=== PATIENT | female | born 1990 | race Hispanic/Latino ===

== ENCOUNTER 2017-05-10 10:20 | Emergency (ER) | payer OTHER ==
[~2017-05-10] VITALS: Ht 167.6 cm; Wt 118.2 kg
[2017-05-10 10:35] VITALS: BP 134/45; PULSE 76; RESP 16; O2SAT 98
--- NOTE | 2017-05-10 10:38 | ED.REPORT ---
HPI-Chest Pain Under 40 Date of Service May 10, 2017 ED Provider: Dr. Michael Zamora MD A 26 year old female with no pertinent medical history presents to the ED with persistent, 9/10, stabbing chest pain that began 24 hours ago. Patient was driving during symptom onset. The pain is exacerbated by movement and deep breath. She describes the sensation in her chest as a throbbing sensation that is associate with dyspnea. Her chest pain does not radiate outside of her chest. Patient has experienced similar pain previously but has never been evaluated because it often resolved without She has taken ibuprofen of Tums with no relief. She denies any palpitations, rash, nausea, vomiting, fever, chills, unilateral leg swelling or tenderness. No recent long flights or periods of inactivity. Nursing Notes Stated Complaint: CHEST PAIN FOR 24 HOURS Chief Complaint: Chest Pain Nursing Notes Reviewed: Yes (Radius, Nurigene not reconciled) Allergies: Coded Allergies: No Known Allergies (Verified , 05/10/17) Scheduled PRN Hydrocodone-Acetaminophen 5-325 mg (Hydrocodone-Acetaminophen 5-325 mg) 1 Each Tablet 1-2 TABLET PO Q4H PRN PRN For Pain General Time Seen by MD: 10:37 Chief Complaint Chest pain Hx Obtained From: Patient Arrived By: Walk-in Sudden in Onset?: No Onset Occurred: 1 day ago Symptom Duration: Since onset Location: : Chest left: Chest right Quality: Painful, Pleuritic, Sharp, Stabbing, Throbbing Radiation: : Does not radiate Migration/Movement: Reports: None Severity: Current: Pain level 9 out of 10 Severity: Maximum: Pain level 9 out of 10 Associated with: Reports: Shortness of breath, Denies: Nausea, Palpitations, Vomiting, Wheezing Pertinent Negative: Pt denies other symptoms Exacerbated by: Deep breath, Movement Pertinent Negative: Relieved by nothing Recent Healthcare: No recent doctor visit, No recent hospitalization Similar Sx Previous: Yes Risk Factors )( CAD Risk Stratification Risk factors reviewed )( PE Risk Stratification Risk factors reviewed Past Medical History Past Medical History Healthy Past Surgical History None reported. 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 Physical Exam Initial Vital Signs Vital Signs (First) Date Time Temp Pulse Resp B/P Pulse Ox O2 Delivery O2 Flow Rate FiO2 05/10/17 10:32 36.8 05/10/17 10:35 76 16 134/45 98 Room Air Initial VS: Reviewed, Vital signs normal Head / Eyes: Atraumatic, Normocephalic, PERRL Neck: Supple, Non-tender, Full range of motion Extremities: Vascular intact, Neuro intact, No swelling, No tenderness Skin: Warm, Dry, No cyanosis Neurologic: Alert, Oriented, Nonfocal Psychiatric: Mood/affect normal, Behavior normal, Normal thought content General/Constitutional: Awake, Alert, No acute distress Respiratory / Chest: Atraumatic, Breath sounds NL, Breath sounds = bilat, No respiratory distress Cardiovascular: Heart rate NL, Regular rhythm, Heart sounds NL, Peripheral circulation NL, Pulses = bilaterally Abdomen: Atraumatic, Soft, Non-tender Tenderness/Guarding/Rebound: Negative: Tender RUQ... Skin: Atraumatic, Color NL, Warm, Dry Color / Condition: Positive: Diaphoresis present (to nose) Interpretation & Diagnostics Lab Results Interpretation Result Diagram: 05/10/17 1045 05/10/17 1045 Test 05/10/17 10:45 White Blood Count 6.7th/mm3 (3.8-10.1) Red Blood Count 4.47mil/mm3 (3.90-5.20) Hemoglobin 13.0g/dL (12.0-15.6) Hematocrit 38.8% (35.0-46.0) Mean Corpuscular Volume 86.8fL (81-100) Mean Corpuscular Hemoglobin 29.1pg (27.0-35.0) Mean Corpuscular Hemoglobin Concent 33.5% (32.0-37.0) Red Cell Distribution Width 12.7% (12.3-15.4) Platelet Count 307bil/L (150-400) Neutrophils (%) (Auto) 49.7% (40-74) Lymphocytes (%) (Auto) 34.7% (14-46) Monocytes (%) (Auto) 13.4% (4-12) Eosinophils (%) (Auto) 1.8% (0-5) Basophils (%) (Auto) 0.1% (0-3) D-Dimer 0.67mg/L FEU (<0.50) Sodium Level 136mEq/L (134-144) Potassium Level 4.6mEq/L (3.5-5.2) Chloride Level 104mEq/L (97-108) Carbon Dioxide Level 17mmol/L (18-29) Blood Urea Nitrogen 14mg/dL (6-20) Creatinine 0.68mg/dL (0.57-1.00) Estimat Glomerular Filtration Rate 148mL/min (>59) Glucose Level 102mg/dL (60-99) Calcium Level 8.7mg/dL (8.5-10.1) Magnesium Level 1.9mg/dL (1.6-2.6) Total Bilirubin 0.2mg/dL (0.0-1.2) Aspartate Amino Transf (AST/SGOT) 27U/L (0-50) Alanine Aminotransferase (ALT/SGPT) 36U/L (0-32) Alkaline Phosphatase 77U/L (25-150) Troponin T 0.010ug/L (0.0-0.011) Total Protein 6.8g/dL (6.4-8.4) Albumin 3.7g/dL (3.4-5.0) Lipase 22U/L (13-60) Hold Parmar Top Tube Received (Received) ECG Interpretation ECG Interpretation: Sinsu rhythm Rate 72 bpm No prior for comparison Time: 10:40 Interpreted by: ED physician X-Ray Chest Interpretation Chest Xray Interpretation: IMPRESSION: No abnormality is seen in the two-view chest. Cause of pain is not identified. Dictated by: Yohan Bedolla M.D. on 05/10/2017 at 11:27 Interpretation / Wet Read by: Interpret - Radiologist CT Chest Interpretation IMPRESSION: 1. No abnormalities found in the CT PE study. Lungs are clear. No pulmonary embolus. Antegrade vessels are normal. Dictated by: Yohan Bedolla M.D. on 05/10/2017 at 12:24 Study type: CT pulm angiogram Interpretation / Wet Read by: Interpret - Radiologist Re-Eval/Medical Decision Med Decision/Clinical Course HEART Score 0 This is a 26-year-old female presents with 24 hours of constant pleuritic chest discomfort. Cardiac risk factors, and I am unable to identify any risk factors DVT/PE. She reports severe discomfort and is clutching her chest. These are symmetric with good air movement, no hypoxia. She has no history of trauma, no prior features to suggest pneumothorax. Her vitals are normal. No findings of venous thromboembolism or evidence on clinical exam. EKG is normal, chest x-ray is normal, blood work revealed marginally elevated d- dimer, CT angios was negative. Troponin is negative with 24 hours of atypical symptoms. Her heart score is 0. Her symptoms are extremely low probability for CAD, and I am not finding indication for follow up stress testing. At this point a dangerous cause of pleuritic chest pain such as pulmonary embolus, pneumothorax, pneumonia, acute cardiac syndrome is not identified. Its is provided. Conservative measures discussed. Patient is discharged with routine return precautions. Source of Hx: Old records Re-Evaluation/Progress : Time of Eval: 12:59 Patient Status: Condition improved, Pain improved Re-Evaluation/Progress Note: Patient is rechecked. Symptoms have improved upon reeval. She is informed of her current and pending results. All questions about the intended treatment plan are addressed. Patient understands and agrees with the plan. Differential Diagnosis: Positive: Chest pain, acute, Pleurisy, Negative: Acute coronary syndrome, Acute myocardial infarct, Dysrhythmia, Esophageal rupture, Gun shot wound chest, Myocardial infarction, Pneumonia, Pneumothorax, Pulmonary edema, Pulmonary embolism, Rib fracture, Stab wound chest, Unstable angina Counseled Regarding: Diagnosis, Lab results, Need for follow-up, When/why to return to ED Discharge & Departure Primary Impression: Pleuritic chest pain Disposition: Home Discharge Condition All VS Reviewed: Yes Condition: Improved Patient Instructions: Chest Pain (ED) Additional Instructions: 1. Your tests in the emergency department did not reveal a dangerous cause of your chest discomfort. Your heart tests were normal. Her CT scan was normal. 2. We think this type of pleuritic chest pain is caused by inflammation between the lining of along the chest wall. Although extremely painful, he does resolve with time. 3. Activities as tolerated. 4. Take ibuprofen 400 800 mg 3 times a day as needed for pain. 5. If needed for more severe pain take hydrocodone/APAP 5/325 1-2 tabs up to every 6 hours for more severe pain. NOTE: This medication contains a narcotic and causes drowsiness, no driving for at least 4 hours after taking. Use sparingly, 6. Return to emergency department if new, worsening or uncontrolled symptoms Referrals: Amish Pineda MD (PCP) Scribe Attestation Portions of this note were transcribed by Chandan Vásquez. I, Dr. Zamora, personally performed the history, physical exam and medical decision-making; I reviewed and confirmed the accuracy of the information in the transcribed note. Signed by: Chandan Vásquez, 05/10/17. copies to: Amish Pineda MD, Matthew F MD May 10, 2017 10:38 CHANDAN VÁSQUEZ May 10, 2017 10:47
[2017-05-10] MEDS ORDERED: Ondansetron 2 mg/mL 2 mL Inj IVPUSH PRN (10:55)
[2017-05-10] MEDS ORDERED: HYDROmorphone 0.5 mg/0.5 mL iSecure Syringe IVPUSH PRN (10:55)
--- NOTE | 2017-05-10 11:29 | DRSVH ---
PROCEDURE: X-RAY CHEST, TWO VIEWS ([id number]) INDICATIONS: CHEST PAIN TECHNIQUE: 2 views of the chest were acquired. COMPARISON: None. FINDINGS: Surgical changes and devices: cardiac monitor technician leads are seen over the chest. Lungs and pleura: No pleural effusions or pneumothorax. Lungs are clear. Mediastinum: Mediastinal contours are normal. Heart size is normal. Bones and chest wall: No suspicious bony abnormalities. Soft tissues appear unremarkable. IMPRESSION: No abnormality is seen in the two-view chest. Cause of pain is not identified. Dictated by: Yohan Bedolla M.D. on 05/10/2017 at 11:27 Approved by: Yohan Bedolla M.D. on 05/10/2017 at 11:27
[2017-05-10 11:34] LABS: BASOPHILS % (AUTO) 0.1 % (0-3); EOSINOPHILS % (AUTO) 1.8 % (0-5); MONOCYTES % (AUTO) 13.4 % (4-12); Mean Corpuscular Hemoglobin 29.1 pg (27.0-35.0); Mean Corpuscular Volume 86.8 fL (81-100); NEUTROPHILS % (AUTO) 49.7 % (40-74); Platelet Count 307 bil/L (150-400)
[2017-05-10 11:45] LABS: TROPONIN T 0.01 ug/L (0.0-0.011)
[2017-05-10 11:57] LABS: Magnesium 1.9 mg/dL (1.6-2.6)
--- NOTE | 2017-05-10 12:29 | DRSVH ---
PROCEDURE: CT ANGIO CHEST PULMONARY EMBOLISM ([id number]) INDICATIONS: Pleuritic CP, + Dimer TECHNIQUE: After the administration of intravenous contrast, 2 mm thick sections acquired from the pulmonary api orquidea to the posterior costophrenic angles. 3-dimensional maximum intensity projection (MIP) coronal a nd sagittal reformats were then acquired through the thorax. For radiation dose reduction, the follo wing was used: automated exposure control, adjustment of mA and/or kV according to patient size. COMPARISON: [facility], CR, XR CHEST 2VW, 05/10/2017, 11:10. FINDINGS: Image quality: Excellent. Pulmonary arteries: Pulmonary arteries are normal in size, and demonstrate no intraluminal filling d efects to suggest central pulmonary embolism. Lungs and pleura: Lungs are clear. No pleural effusions or pneumothorax. Central and peripheral ai rways are patent. Mediastinum: Heart size is normal, without pericardial effusion. No mediastinal or hilar adenopathy . Thoracic aorta is normal in caliber and enhancement. Esophagus is normal in caliber, without hiat al hernia. Bones and chest wall: No suspicious bony lesions. Ribs and thoracic spine appear intact throughout. Thyroid gland in its lower portion visualized is normal.. No axillary or supraclavicular adenopath y. Abdomen: Visualized upper abdominal solid organs appear normal in the early arterial phase of enhanc ement. IMPRESSION: 1. No abnormalities found in the CT PE study. Lungs are clear. No pulmonary embolus. Antegrade vessel s are normal. Dictated by: Yohan Bedolla M.D. on 05/10/2017 at 12:24 Approved by: Yohan Bedolla M.D. on 05/10/2017 at 12:27
[2017-05-10 13:53] VITALS: BP 128/47; PULSE 74; RESP 17; O2SAT 98
[2017-05-10] MEDS ORDERED: HYDR-4003 PO (14:00)
== END 2017-05-10 13:55 | disposition home or self-care (01) ==
LOC: SED 10:20
DX: R07.1 Chest pain on breathing (principal); F17.200 Nicotine dependence, unspecified, uncomplicated
CPT/HCPCS: 36415; 71020; 71275; 80053; 83690; 83735; 84484; 85025; 85378; 93005; 96374; 99285; J1885; Q9967